=== PATIENT | female | born 1980 | race Hispanic/Latino ===

== ENCOUNTER 2024-11-27 17:52 | Emergency (ER) | payer BC, OTHER ==
[~2024-11-27] VITALS: Ht 152.4 cm; Wt 76.2 kg
--- NOTE | 2024-11-27 18:05 | EKG ---
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
--- NOTE | 2024-11-27 18:06 | ERN ---
ED Note History of Present Illness Stated Complaint: CHEST PAIN Chief Complaint: Chest Pain Time Seen by MD: 17:53 Time Seen by Midlevel: 17:53 Dictation: The patient is a 44-year-old female with a history of hyperlipidemia, cholecystectomy who presents to the emergency department with complaints of left-sided chest pain radiating down her left arm onset Sunday. Patient reports she was seen at [facility] and was discharged with meloxicam. Patient reports she has been taking the medication and it temporarily improves her pain but then pain returns. Reports pain to be intermediate and reproducible with palpation. Denies any shortness of breath, cough, fevers, chest trauma. Allergies: Coded Allergies: No Known Drug Allergies (Unverified Allergy, Intermediate, 11/27/24) Past Medical History Past Medical History: High Cholesterol Surgical History: Cholecystectomy RN Note Reviewed/Agreed w/PFSH: Yes Review of System Dictation Constitutional: Negative for fever,chills, and weight loss Eyes: Negative for injury, pain,redness, and discharge ENT: Negative for injury,pain or swelling Cardiovascular: Negative for palpitations, and edema positive for chest pain Respiratory: Negative for shortness of breath, cough, and wheezing, Abdomen/GI: Negative for abdominal pain, nausea, vomiting, diarrhea, and constipation Back: Negative for injury and pain : Negative for injury, bleeding and discharge MS/Extremity: Negative for injury and deformity Skin: Negative for rash, and discoloration Neuro: Negative for headache, weakness, numbness, tingling, and seizure Psych: Negative for suicide ideation, homicidal ideation, and hallucinations Initial Vital Sign VS Vital Signs Date Time Temp Pulse Resp B/P (MAP) Pulse Ox O2 Delivery O2 Flow Rate FiO2 11/27/24 17:53 98.1 87 20 153/97 99 Room Air 0 11/27/24 18:26 21 Physical Exam Dictation Vital Signs reviewed General Appearance: Alert, oriented x 3, no acute distress, well developed, nourished. Head and Face: non-traumatic. Eyes: PERRL, pink conjunctivas, eyelid no trauma, anterior chamber with arcus senilis. Ears: Pinnas intact and no signs of trauma or erythema ear canals clear and no discharge TM no erythema Nose: No discharge, no bleeding. Oropharynx: Mouth normal, tongue pink. pharynx clear,no erythema, tonsils no exudates, no abscesses noted, mucous membrane moist Neck: Supple, non-tender, no thyromegaly, no masses, no JVD, no bruits Breast:Deferred Chest:No tenderness, no crepitus, no paradoxical movement, no retractions Lungs:Clear, well-ventilated, symmetric, no rales, no wheezing, no rhonchi, no stridor, good breath sounds bilaterally Heart: Regular rate, regular rhythm, no murmur, no gallops Vascular: no peripheral edema, Abdomen: Soft, positive bowel sounds, nondistended, no guarding, nontender, no rebound, no masses no hepatomegaly, no splenomegaly, no Velasco's sign, no hernias. Rectal: Deferred Genital: Deferred Neurological: Normal speech, motor function intact, sensory function intact Musculoskeletal: Neck nontender, full range of motion, back nontender, full range of motion, Extremities: nontender, full range of motion Skin: Color pink, dry, no turgor, no rash, no lacerations, no abrasions, no contusions. Lymphatic: Deferred Results (Laboratory/Radiology) Laboratory/Radiology Laboratory Tests Test 11/27/24 18:08 11/27/24 18:15 11/27/24 18:47 White Blood Count 9.8 K/uL (4.8-10.8) Red Blood Count 4.43 MIL/uL (4.00-5.50) Hemoglobin 13.2 g/dL (12.0-16.0) Hematocrit 39.2 % (36-48) Mean Corpuscular Volume 88.5 fL (79-99) Mean Corpuscular Hemoglobin 29.8 pg (27.0-33.0) Mean Corpuscular Hemoglobin Concent 33.7 g/dL (32.0-36.0) Red Cell Distribution Width 12.5 % (11.0-15.5) Platelet Count 277 K/uL (130-400) Mean Platelet Volume 8.7 fL (7.5-10.5) Immature Granulocyte % (Auto) 0.2 % (0-1) Neutrophils (%) (Auto) 54.2 % (40.0-77.0) Lymphocytes (%) (Auto) 37.8 % (21.0-51.0) Monocytes (%) (Auto) 5.3 % (3.0-13.0) Eosinophils (%) (Auto) 1.6 % (0.0-8.0) Basophils (%) (Auto) 0.9 % (0.0-5.0) Neutrophils # (Auto) 5.3 K/uL (1.8-7.7) Lymphocytes # (Auto) 3.7 K/uL (1.0-4.8) Monocytes # (Auto) 0.5 K/uL (0.1-1.0) Eosinophils # (Auto) 0.16 K/uL (0.00-0.70) Basophils # (Auto) 0.09 K/uL (0.00-0.20) Absolute Immature Granulocyte (auto 0.02 K/uL (0-1) Nucleated Red Blood Cells 0.0 % (0.0-0.19) Sodium Level 139 mmol/L (136-145) Potassium Level 3.9 mmol/L (3.5-5.1) Chloride Level 105 mmol/L (101-111) Carbon Dioxide Level 27 mmol/L (21-32) Blood Urea Nitrogen 15 mg/dL (7-18) Creatinine 0.7 mg/dL (0.5-1.0) Glomerular Filtration Rate Calc 111 mL/min (>90) Random Glucose 94 mg/dL (70-105) Total Calcium 8.7 mg/dL (8.5-10.1) Total Creatine Kinase 102 U/L (21-232) Troponin I High Sensitivity 9 ng/L (4-50) 9 ng/L (4-50) B-Type Natriuretic Peptide < 5 pg/mL (0-100) Serum Test, Qualitative NEGATIVE (NEGATIVE) Urine Color COLORLESS (YELLOW) Urine Appearance CLEAR (CLEAR) Urine pH 6.0 (5.0-8.0) Urine Specific [place] 1.005 (1.001-1.031) Urine Protein NEGATIVE mg/dL (NEGATIVE) Urine Glucose (UA) NEGATIVE mg/dL (NEGATIVE) Urine Ketones NEGATIVE mg/dL (NEGATIVE) Urine Occult Blood NEGATIVE (NEGATIVE) Urine Nitrate NEGATIVE (NEGATIVE) Urine Bilirubin NEGATIVE mg/dL (NEGATIVE) Urine Urobilinogen 0.2 mg/dL (0.2-1.0) Urine Leukocyte Esterase NEGATIVE Bere/uL REASON: CHEST PAIN ORDERING PHYSICIAN: ALLY ROGERS DO PROCEDURE: CXR1VW - CHEST 1VW PORTABLE CHEST RADIOGRAPH INDICATION: CHEST PAIN COMPARISON: None FINDINGS: Heart size is normal. The pulmonary vascularity and milo appear normal. No abnormal pulmonary parenchymal opacity or consolidation identified. No significant pleural effusion noted. No pneumothorax detected. IMPRESSION: No radiographic evidence for any acute cardiopulmonary process. Labs Reviewed?: Yes EKG: (+) rhythm (Sinus rhythm) EKG Comment: Date:11/27/2024 Time:1802 Ventricular rate:86 [place] interval:141 QRS duration:95 QT/QTc:454 EKG interpretation: Sinus rhythm, nonspecific T abnormalities Reviewed by ED Attending no STEMI ED Course ED Course Orders Procedure Category Date Status Time Vital Signs Per CPOE 11/27/24 Transmitted Routine 17:57 B-Type Natriuretic LAB 11/27/24 Complete Peptide 17:57 Chest 1vw RAD 11/27/24 Resulted 17:57 12 Lead Ekg Tracing- EKG 11/27/24 Complete Technical 17:57 Oxygen By Nc/Pulse Ox CPOE 11/27/24 Transmitted 17:57 Maintain Iv CPOE 11/27/24 Transmitted 17:57 Iv Insertion CPOE 11/27/24 Transmitted 17:57 Cardiac Monitoring CPOE 11/27/24 Transmitted 17:57 Pulse Oximetry With CPOE 11/27/24 Transmitted Vs And Prn 17:57 Cbc With Differential LAB 11/27/24 Complete 17:57 Activity: Br W/Brp CPOE 11/27/24 Transmitted With Assist 17:57 Creatine Kinase, Total LAB 11/27/24 Complete 17:57 Troponin I High LAB 11/27/24 Complete Sensitivity 17:57 Urinalysis Profile LAB 11/27/24 Complete 17:57 Basic Metabolic Panel LAB 11/27/24 Complete 17:57 Testing, LAB 11/27/24 Complete Serum Hcg 18:02 Aspirin 325mg Tab PHA 11/27/24 Complete (Aspirin 325mg Tab) 18:30 Troponin I High LAB 11/27/24 Complete Sensitivity 18:41 Current Medications Medications (Trade) Dose Ordered Sig/Octavio Route PRN Reason Start Time Stop Time Status Last Admin Dose Admin Aspirin (Aspirin 325mg Tab) 325 mg ONCE ONCE PO 11/27/24 18:30 11/27/24 18:31 DC 11/27/24 18:22 Vital Signs Date Time Temp Pulse Resp B/P (MAP) Pulse Ox O2 Delivery O2 Flow Rate FiO2 11/27/24 18:26 98.2 87 14 127/67 100 Room Air* 0 21 11/27/24 17:53 98.1 87 20 153/97 99 Room Air 0 HEART Score Response (Comments) Value History: Low suspicion (0) 0 EKG: Normal 0 Age: < 45yrs (0) 0 Risk Factors: No known risk factors (0) 0 Initial Troponin: Normal limit (0) 0 HEART Score Risk: Low Risk for MACE (1-3) Total 0 Medical Decision Making MDM The patient is a 44-year-old female with a history of hyperlipidemia, cholecystectomy who presents to the emergency department with complaints of left-sided chest pain radiating down her left arm onset Sunday. Patient reports she was seen at [facility] and was discharged with meloxicam. Patient reports she has been taking the medication and it temporarily improves her pain but then pain returns. Reports pain to be intermediate and reproducible with palpation. Denies any shortness of breath, cough, fevers, chest trauma. Showed no leukocytosis, no anemia, chemistry showed no electrolyte imbalance, negative troponins x2, chest x-ray showed no acute pathology.. Patient's symptoms probably related to muscle skeletal. Low risk for cardiac etiology. Neurologically intact. Patient in no acute distress will be discharged to follow up with PCP. Differential diagnosis: Costochondritis, ACS, pneumonia, pneumothorax Need for hospitalization: Patient does not meet criteria for hospitalization. There are no social concerns with this patient. DX & DISP Disposition: Discharge Departure Impression: Primary Impression: Chest pain Additional Impression: Costochondritis Condition: Stable Referrals: SELF,REFERRAL (PCP) Time of Disposition: 19:30 I have reviewed the case, and I agree with, Diagnosis and Plan CELY HOFFMAN November 27, 2024 18:06
[2024-11-27 18:13] LABS: BASOPHILS # (AUTO) 0.09 K/uL (0.00-0.20); BASOPHILS % (AUTO) 0.9 % (0.0-5.0); EOSINOPHILS # (AUTO) 0.16 K/uL (0.00-0.70); EOSINOPHILS % (AUTO) 1.6 % (0.0-8.0); HEMATOCRIT 39.2 % (36-48); IMMATURE GRANULOCYTE ABSOLUTE 0.02 K/uL (0-1); LYMPHOCYTES # (AUTO) 3.7 K/uL (1.0-4.8); LYMPHOCYTES % (AUTO) 37.8 % (21.0-51.0); MEAN CORPUSCULAR HEMOGLOBIN 29.8 pg (27.0-33.0); MEAN CORPUSCULAR HGB CONC 33.7 g/dL (32.0-36.0); MEAN CORPUSCULAR VOLUME 88.5 fL (79-99); MONOCYTES # (AUTO) 0.5 K/uL (0.1-1.0); MONOCYTES % (AUTO) 5.3 % (3.0-13.0); NEUTROPHILS # (AUTO) 5.3 K/uL (1.8-7.7); NEUTROPHILS % (AUTO) 54.2 % (40.0-77.0); PLATELET COUNT (AUTO) 277 K/uL (130-400); RED BLOOD CELL COUNT(AUTO) 4.43 MIL/uL (4.00-5.50); RED CELL DISTRIBUTION WIDTH 12.5 % (11.0-15.5); WHITE BLOOD COUNT (AUTO) 9.8 K/uL (4.8-10.8)
[2024-11-27 18:20] LABS: CREATININE 0.7 mg/dL (0.5-1.0); POTASSIUM 3.9 mmol/L (3.5-5.1)
[2024-11-27] MEDS: ASPIRIN 325MG TAB PO ONE (18:22)
--- NOTE | 2024-11-27 18:25 | HMCIMG ---
PORTABLE CHEST RADIOGRAPH INDICATION: CHEST PAIN COMPARISON: None FINDINGS: Heart size is normal. The pulmonary vascularity and milo appear normal. No abnormal pulmonary parenchymal opacity or consolidation identified. No significant pleural effusion noted. No pneumothorax detected. IMPRESSION: No radiographic evidence for any acute cardiopulmonary process.
[2024-11-27 18:30] LABS: APPEARANCE,URINE CLEAR (CLEAR); BILIRUBIN,URINE NEGATIVE (NEGATIVE); COLOR,URINE COLORLESS (YELLOW); GLUCOSE, URINE (UA) NEGATIVE (NEGATIVE); KETONES,URINE NEGATIVE (NEGATIVE); LEUKOCYTE ESTERASE ,URINE NEGATIVE Leu/uL (NEGATIVE); NITRATE,URINE NEGATIVE (NEGATIVE); OCCULT BLOOD,URINE NEGATIVE (NEGATIVE); PROTEIN,URINE NEGATIVE (NEGATIVE); UROBILINOGEN,URINE 0.2 mg/dL (0.2-1.0)
[2024-11-27 18:31] LABS: B-TYPE NATRIURETIC PEPTIDE < 5 pg/mL (0-100)
[2024-11-27 18:32] LABS: ADD UA MICROSCOPIC NO
[2024-11-27 19:40] VITALS: BP 124/70; PULSE 73; RESP 17; TEMP 98.5; O2SAT 98
== END 2024-11-27 19:41 | disposition home or self-care (01) ==
LOC: EDH 17:52
DX: M94.0 Chondrocostal junction syndrome [Tietze] (principal); E78.00 Pure hypercholesterolemia, unspecified; Z90.49 Acquired absence of other specified parts of digestive tract
CPT/HCPCS: 36415; 71045; 80048; 81003; 82550; 83880; 84484; 84703; 85025; 93005; 99284